=== PATIENT | male | born 1965 | race Caucasian/White ===

== ENCOUNTER 2018-01-25 07:58 | Emergency (ER) | payer SELFPAY ==
[2018-01-25 08:14] VITALS: BP 177/115
--- NOTE | 2018-01-25 09:07 | UC ---
Upper Extremity HPI - HPI Summary HPI Summary: pt was lifting cabinates yesterday at home. did no have any discomfort at that time this am awoke with swollen, discolored L arm that "felt funny". denies CP at anytime. discoloraiton has started to resolve, but upper arm still swollen. Denies coldness, numbness in arm or fingers at anytime - History of Current Complaint Chief Complaint: UCUpperExtremity Stated Complaint: L ARM SWELLING Time Seen by Provider: 01/25/18 08:43 Hx Obtained From: Patient Onset/Duration: Sudden Onset Severity Initially: Mild Severity Currently: Mild Pain Intensity: 2 Location Of Pain: Is Discrete @ - L upper ext. Character: Unable to Describe Aggravating Factor(s): Movement Alleviating Factor(s): Nothing Associated Signs And Symptoms: Positive: Swelling, Bruising. Negative: Weakness Related History: Dominant Hand Right - Risk Factors DVT Risk Factors: Negative - Allergies/Home Medications Allergies/Adverse Reactions: Allergies Allergy/AdvReac Type Severity Reaction Status Date / Time No Known Allergies Allergy Verified 01/25/18 08:06 Home Medications: Home Medications NK [No Home Medications Reported] 01/25/18 [History Confirmed 01/25/18] PMH/Surg Hx/FS Hx/Imm Hx Previously Healthy: Yes - Surgical History Surgical History: Yes Surgery Procedure, Year, and Place: vasectomy 27 years ago - Family History Known Family History: Positive: Cardiac Disease - Social History Occupation: Employed Full-time Lives: With Family Alcohol Use: Weekly Substance Use Type: None Smoking Status (MU): Never Smoked Tobacco Type: Smokeless Tobacco Review of Systems All Other Systems Reviewed And Are Negative: Yes Constitutional: Positive: Negative Skin: Positive: Other - L arm "discolored" Respiratory: Positive: Negative. Negative: Shortness Of Breath, Cough Cardiovascular: Positive: Negative. Negative: Chest Pain Neurovascular: Positive: Negative. Negative: Decreased Sensation Musculoskeletal: Positive: Negative. Negative: Decreased ROM Neurological: Positive: Negative. Negative: Headache Psychological: Positive: Negative Is Patient Immunocompromised?: No Physical Exam Triage Information Reviewed: Yes Appearance: Well-Appearing, No Pain Distress, Well-Nourished Vital Signs: Initial Vital Signs Temp 98.8 F 01/25/18 08:05 Pulse 86 01/25/18 08:05 Resp 18 12/02/18 08:05 BP 177/115 01/25/18 08:05 Pulse Ox 98 01/25/18 08:05 Vital Signs Reviewed: Yes Respiratory Exam: Normal Respiratory: Positive: Chest non-tender, Lungs clear, Normal breath sounds Cardiovascular Exam: Normal Cardiovascular: Positive: RRR, No Murmur, Pulses Normal, Brisk Capillary Refill Musculoskeletal: Positive: Strength Intact, ROM Intact, Other: - R arm circumference:13.25 inches, L arm 15.25 inches Neurological Exam: Normal Psychological Exam: Normal Skin: Positive: Other - dusky discoloration upper L arm Upper Extremity Course/Dx - Course Course Of Treatment: discussed concern for thoracic outlet syndrome with patient and S.O. and need for further evaluation in ED. they refuse ambulance but agree to go directly to [facility] ER now - Differential Dx/Diagnosis Differential Diagnosis/HQI/PQRI: Contusion, Strain, Sprain, Other - thoracic outlet syndrome Provider Diagnosis: Left upper extremity swelling - Physician Notification/Consults Discussed Patient Care With: Leroy RASMUSSEN in ER Time Discussed With Above Provider: 09:10 Discharge - Sign-Out/Discharge Documenting (check all that apply): Patient Departure All imaging exams completed and their final reports reviewed: No Studies - Discharge Plan Condition: Stable Disposition: HOME Patient Education Materials: Thoracic Outlet Syndrome (ED) Referrals: No Primary Care Phys,NOPCP [Primary Care Provider] - Additional Instructions: please go directly to [facility] Emergency room now for further evaluation - Billing Disposition and Condition Condition: STABLE Disposition: Home
== END 2018-01-25 09:22 | disposition home or self-care (01) ==
LOC: UCEAST 07:58
DX: M79.89 Other specified soft tissue disorders (principal); F17.290 Nicotine dependence, other tobacco product, uncomplicated
CPT/HCPCS: 99201; G0463

== ENCOUNTER 2018-01-25 09:35 | Emergency (ER) | payer BC ==
[2018-01-25 10:42] LABS: ABS Basophils 0 10^3/ul (0-0.2); ABS Eosinophils 0.1 10^3/ul (0-0.6); ABS Lymphocytes 1.7 10^3/ul (1.0-4.8); ABS Monocytes 0.7 10^3/ul (0-0.8); ABS Neutrophils 4.8 10^3/ul (1.5-7.7); ABS Nucleated RBC 0 10^3/ul; Eosinophil % 1.7 %; Hematocrit 42 % (42-52); Hemoglobin 14.4 g/dl (14.0-18.0); Lymphocyte % 23.6 %; Mean Corpuscular HGB Conc 34 g/dl (31-36); Mean Corpuscular Hemoglobin 30 pg (27-31); Mean Corpuscular Volume 88 fL (80-94); Mean Platelet Volume 7.6 fL (7.4-10.4); Nucleated Red Blood Cells % 0; Platelet Count 222 10^3/ul (150-450); Red Blood Count 4.82 10^6/ul (4.00-5.40); Red Cell Distribution Width 14 % (10.5-15); White Blood Count 7.3 10^3/ul (3.5-10.8)
[2018-01-25 10:54] LABS: INR 0.96 (0.77-1.02)
--- NOTE | 2018-01-25 10:56 | ED ---
Upper Extremity Pain - HPI Summary HPI Summary: Patient is a 52-year-old male who presents to emergency department for swelling and bruising to his left upper arm times one day. Patient states when he woke up this morning he noticed his left arm was larger than his right and noticed some diffuse bruising. He describes discomfort as a tight feeling. No associated symptoms of neck pain, numbness, tingling or weakness of extremity. Patient notes that he shoveled snow and use snowblower yesterday but these activities are not uncommon for him. He otherwise denies any injuries or falls. He denies past medical history. Symptoms are [id number] in severity. No current modifying factors. Patient was initially seen at urgent care and was referred to the ER for further evaluation. Patient states since being at urgent care swelling and discoloration have improved. No history of IV drug use. No recent venous puncture. - History of Current Complaint Chief Complaint: EDExtremityUpper Stated Complaint: LEFT ARM SWOLLEN AND DISCOLORED Time Seen by Provider: 01/25/18 10:03 Hx Obtained From: Patient - Allergies/Home Medications Allergies/Adverse Reactions: Allergies Allergy/AdvReac Type Severity Reaction Status Date / Time No Known Allergies Allergy Verified 01/25/18 09:37 PMH/Surg Hx/FS Hx/Imm Hx Previously Healthy: Yes - Surgical History Surgery Procedure, Year, and Place: vasectomy 27 years ago Infectious Disease History: No Infectious Disease History: Denies: Traveled Outside the [place] in Last 30 Days - Family History Known Family History: Positive: Cardiac Disease, Other - blood clots - Social History Occupation: Employed Full-time Lives: With Family Alcohol Use: Weekly Substance Use Type: Reports: None Smoking Status (MU): Never Smoked Tobacco Type: Smokeless Tobacco Review of Systems Constitutional: Negative Positive: Other - Pain and swelling to left upper arm. Neurological: Negative Negative: Weakness, Paresthesia, Numbness All Other Systems Reviewed And Are Negative: Yes Physical Exam Triage Information Reviewed: Yes Vital Signs On Initial Exam: Initial Vitals Temp Pulse Resp BP Pulse Ox 98.1 F 81 14 180/104 98 01/25/18 09:38 01/25/18 09:38 01/25/18 09:38 01/25/18 09:38 01/25/18 09:38 Vital Signs Reviewed: Yes Appearance: Positive: Well-Appearing - Pt. sitting up in bed in NAD. present. Skin: Positive: Warm, Dry Head/Face: Positive: Normal Head/Face Inspection Eyes: Positive: Normal, EOMI Neck: Positive: Supple Respiratory/Lung Sounds: Positive: Clear to Auscultation, Breath Sounds Present Cardiovascular: Positive: Normal, RRR Musculoskeletal: Positive: Other - Good radial pulse on left UE. 5/5 strength in hand. Mild diffuse edema and ecchymosis noted to the left UE. No erythema, induration, fluctuance or wounds. Full ROM at shoulder and elbow. Neurological: Positive: Normal, CN Intact II-III Psychiatric: Positive: Affect/Mood Appropriate Diagnostics - Vital Signs Vital Signs Temp Pulse Resp BP Pulse Ox 01/25/18 09:38 98.1 F 81 14 180/104 98 - Laboratory Lab Results: Lab Results 01/25/18 Range/Units 10:36 WBC 7.3 (3.5-10.8) 10^3/ul RBC 4.82 (4.00-5.40) 10^6/ul Hgb 14.4 (14.0-18.0) g/dl Hct 42 (42-52) % MCV 88 (80-94) fL MCH 30 (27-31) pg MCHC 34 (31-36) g/dl RDW 14 (10.5-15) % Plt Count 222 (150-450) 10^3/ul MPV 7.6 (7.4-10.4) fL Neut % (Auto) 65.4 % Lymph % (Auto) 23.6 % Cloud % (Auto) 9.1 % Eos % (Auto) 1.7 % Baso % (Auto) 0.2 % Absolute Neuts (auto) 4.8 (1.5-7.7) 10^3/ul Absolute Lymphs (auto) 1.7 (1.0-4.8) 10^3/ul Absolute Monos (auto) 0.7 (0-0.8) 10^3/ul Absolute Eos (auto) 0.1 (0-0.6) 10^3/ul Absolute Basos (auto) 0 (0-0.2) 10^3/ul Absolute Nucleated RBC 0 10^3/ul Nucleated RBC % 0 Result Diagrams: 01/25/18 10:36 01/25/18 10:36 Lab Statement: Any lab studies that have been ordered have been reviewed, and results considered in the medical decision making process. Course/Dx - Course Course Of Treatment: Pt. presenting for left upper arm swelling and bruising after physical activity yesterday. He is afebrile and well appearing. Will check basic labs and venous u/s for further evaluation. Labs are unremarkable. U/S reading per radiology: IMPRESSION: FINDINGS MOST CONSISTENT WITH DEEP VENOUS THROMBOSIS WITHIN THE SUBCLAVIAN VEIN. Case and management discussed with Dr. Purdy who recommends outpt. management. Will add hypercoagulable panel before staring anticoags. Pt. notes his father of what they believe was a clot in his 60's. Pt. notes that he lives in [place], [place] and has a house here in the area. He note that they are returning back to [place] today. 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 Will start on Eliquis. Advisd pt. to call his PCP tomorrow when he returns home to schedule a close f.u apt. To elevate arm and apply warm compress. Discussed risk vs benefit of anticoagulation. Advised to return to ER for increased swelling, pain, CP, SOB or if concerned. Pt. understands and agrees with plan. - Diagnoses Differential Diagnosis/HQI/PQRI: Positive: Strain, Sprain Provider Diagnoses: DVT of upper extremity (deep vein thrombosis) Discharge - Sign-Out/Discharge Documenting (check all that apply): Patient Departure - Discharge Plan Condition: Good Disposition: HOME Prescriptions: Apixaban* [Eliquis*] 5 mg PO BID #70 tab Patient Education Materials: Deep Vein Thrombosis (ED) Referrals: [facility] [Outside] No Primary Care Phys,NOPCP [Primary Care Provider] - Additional Instructions: Call your PCP tomorrow to schedule a follow up appointment You will need additional prescriptions for blood thinner Take Eliquis as directed Please read hand out on anticoagulation Elevate arm and apply warm compresses Return to ER for increased swelling, pain, chest pain or shortness of breath - Billing Disposition and Condition Condition: GOOD Disposition: Home
[2018-01-25 10:58] LABS: EGFR Non-African American 116.5 (>60)
[2018-01-25] MEDS ORDERED: Apixaban* 5 MG TAB PO ONE (12:24)
[2018-01-25 14:15] VITALS: BP 162/98
== END 2018-01-25 14:14 | disposition home or self-care (01) ==
LOC: ED 09:35
DX: I82.622 Acute embolism and thrombosis of deep veins of left upper extremity (principal); R60.9 Edema, unspecified
CPT/HCPCS: 36415; 80053; 81241; 82550; 83090; 85025; 85302; 85303; 85306; 85307; 85610; 85730; 86147; 99282